=== PATIENT | male | born 1940 | race Caucasian/White ===

== ENCOUNTER 2017-03-01 18:18 | Emergency (ER) | payer MEDICARE, OTHER ==
[~2017-03-01] VITALS: Ht 170.2 cm; Wt 114.9 kg
[~2017-03-01 18:18] MED LIST: ASPI-730 PO; ATOR20TA18 PO; BENA40TA35 PO; FAMO20TA79 PO; METO50TA78 PO; MVI PO
--- OUTSIDE RECORDS SUMMARY | 2017-03-01 18:22 | XMS REPORT | Continuity of Care Document ---
Author Author [facility] Organization [facility] Address Unknown Phone Unavailable Allergies Active Description Code Type Severity Reaction Onset Reported/Identified Relationship to Patient Clinical Status Yes No Known Allergies [id number] Unknown N/A 03/30/2012 Medications Medication Packaging Start Date Stop Date Route Dosage Sig DOCUSATE SODIUM 01/06/2017 01/06/2017 BIDPRN ACETAMINOPHEN 01/06/2017 01/06/2017 Q4HPRN ACETAMINOPHEN 01/06/2017 01/06/2017 Q4HPRN ALUM-MAG HYDROXIDE-SIMETH 01/06/2017 01/06/2017 Q4HPRN MAGNESIUM HYDROXIDE 01/06/2017 01/06/2017 HSPRN CEFAZOLIN 01/06/2017 01/06/2017 ONCEPRN CEFAZOLIN 01/06/2017 01/06/2017 ONCEPRN FAMOTIDINE 01/06/2017 01/06/2017 QD SOTALOL 01/06/2017 01/06/2017 BID BENAZEPRIL 01/06/2017 01/06/2017 QD MULTIVITAMIN 01/06/2017 01/06/2017 QD HYDROCODONE-ACET 5-325MG 01/06/2017 01/06/2017 Q3HPRN ZOLPIDEM 01/06/2017 01/06/2017 HSPRNRX1 ACETAMINOPHEN 01/06/2017 01/06/2017 Q4HPRN ASPIRIN 01/06/2017 01/06/2017 HS ATORVASTATIN 01/06/2017 01/06/2017 HS Problems Date Dx Coded Attending Type Code Diagnosis Diagnosed By 01/08/2017 CHRISTY BANKS E66.9 OBESITY, UNSPECIFIED CHRISTY BANKS 01/08/2017 CHRISTY BANKS E78.5 HYPERLIPIDEMIA, UNSPECIFIED CHRISTY BANKS 01/08/2017 CHRISTY BANKS F17.210 NICOTINE DEPENDENCE, CIGARETTES, UNCOMPLICATED BANKSCHRISTY CAT 01/08/2017 CHRISTY BANKS G47.33 OBSTRUCTIVE SLEEP APNEA (ADULT) (PEDIATRIC) CHRISTY BANKS 01/08/2017 BANKS, CHRISTY S I10 ESSENTIAL (PRIMARY) HYPERTENSION [facility], [facility] 01/08/2017 BANKSCHRISTY S I25.10 ATHEROSCLEROTIC HEART DISEASE OF [place] CORONARY ARTERY WITHOUT ANGINA PECTORIS [facility], [facility] 01/08/2017 BANKSCHRISTY CAT S I25.2 OLD MYOCARDIAL INFARCTION [facility], [facility] 01/08/2017 BANKSCHRISTY S I47.2 VENTRICULAR TACHYCARDIA [facility], [facility] 01/08/2017 BANKSCHRISTY P Z45.02 ENCOUNTER FOR ADJUSTMENT AND MANAGEMENT OF AUTOMATIC IMPLANTABLE CARDIAC DEFIBRILLATOR [facility], [facility] 01/08/2017 BANKSCHRISTY CAT S Z68.41 BODY MASS INDEX (BMI) 40.0-44.9, ADULT BANKS, [facility] 01/08/2017 BANKSCHRISTY CAT S Z79.82 PRISON (CURRENT) USE OF ASPIRIN [facility], [facility] 01/08/2017 CHRISTY BANKS S 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 [facility], [facility] 01/08/2017 BANKSCHRISTY CAT S Z95.1 PRESENCE OF AORTOCORONARY BYPASS GRAFT [facility] CHRISTY Procedures Results Test Result Range CBC with Auto Diff - 01/06/17 08:25 WBC - WHITE CELL COUNT 8.8 X10(3) 4.5-11.0 RBC - RED CELL COUNT 4.87 X10(6) 4.60-6.20 PLATELET COUNT 188 X10(3) 150-450 HEMOGLOBIN 16.1 g/dl 13.5-18.0 HEMATOCRIT 45.1 % 40.0-54.0 MCV 92.6 fL 80.0-96.0 MCH 33 pg 27-31 MCHC 35.7 % 32.0-36.0 LYMPHS 33.1 % 20.0-45.0 MONOS 12.2 % 0.0-15.0 NEUTROPHILS 54.7 % 40.0-80.0 BMP - BASIC METABOLIC PANEL - 01/06/17 08:25 GLUCOSE 129 mg/dl 74-106 BUN 23 mg/dl 7-18 CREATININE 1.36 mg/dl 0.70-1.30 eGFR 51 mL/min SODIUM (NA) 136 mEq/L 136-146 POTASSIUM, BLOOD 4.2 mEq/L 3.5-5.1 CHLORIDE 104 mEq/L 98-107 CO2 (BICARBONATE) 27 mEq/L 21-32 CALCIUM 9.4 mg/dl 8.5-10.1 HOLD SPECIMEN FOR BLOOD BANK - 01/06/17 08:25 HOLD SPECIMEN FOR BLOOD BANK ARC Encounters ACCT No. Visit Date/Time Discharge Status Pt. Type Provider Facility Loc./Unit Complaint [id number] 01/06/2017 07:53:00 01/06/2017 14: 25:00 DIS Outpatient DARREN CHRISTY [facility] 120 Z95.810
[2017-03-01 18:26] VITALS: TEMP 98.7; Ht 170.2 cm; Wt 114.9 kg
--- OUTSIDE RECORDS SUMMARY | 2017-03-01 18:44 | XMS REPORT | Continuity of Care Document ---
Author Author [facility] Organization [facility] Address Unknown Phone Unavailable Allergies Active Description Code Type Severity Reaction Onset Reported/Identified Relationship to Patient Clinical Status Yes No Known Allergies [id number] Unknown N/A 03/30/2012 Medications Medication Packaging Start [...] BANKS, CHRISTY S I10 ESSENTIAL (PRIMARY) HYPERTENSION [facility], [facility] 01/08/2017 BANKSCHRISTY S I25.10 ATHEROSCLEROTIC HEART DISEASE OF [place] CORONARY ARTERY WITHOUT ANGINA PECTORIS [facility], [facility] 01/08/2017 BANKSCHRISTY CAT S I25.2 OLD MYOCARDIAL INFARCTION [facility], [facility] 01/08/2017 BANKSCHRISTY S I47.2 VENTRICULAR TACHYCARDIA [facility], [facility] 01/08/2017 BANKSCHRISTY P Z45.02 ENCOUNTER FOR ADJUSTMENT AND MANAGEMENT OF AUTOMATIC IMPLANTABLE CARDIAC DEFIBRILLATOR [facility], [facility] 01/08/2017 BANKSCHRISTY CAT S Z68.41 BODY MASS INDEX (BMI) 40.0-44.9, ADULT BANKS, [facility] 01/08/2017 BANKSCHRISTY CAT S Z79.82 GROUP HOME (CURRENT) USE OF ASPIRIN [facility], [facility] 01/08/2017 CHRISTY BANKS S 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 Type Provider Facility Loc./Unit Complaint [id number] 01/06/2017 07:53:00 01/06/2017 14: 25:00 DIS Outpatient DARREN CHRISTY [facility] 120 Z95.810
[2017-03-01] MEDS ORDERED: CHLO25TA2 PO (19:02)
[2017-03-01] MEDS ORDERED: SOTA80TA PO (19:02)
[2017-03-01] MEDS ORDERED: MULT-933 PO (19:02)
[2017-03-01 19:19] LABS: BASOPHILS # (AUTO) 0.1 T/MM3 (0-0.2); BASOPHILS % (AUTO) 0.5 % (0-2); EOSINOPHILS # (AUTO) 0.2 T/MM3 (0-0.5); EOSINOPHILS % (AUTO) 2.5 % (0-4); HCT - HEMATOCRIT 43.9 % (41-53); HGB - HEMOGLOBIN 15.3 GM/DL (13.5-17.5); IMMATURE GRANULOCYTE # (AUTO) 0.03 T/MM3 (0.00-0.03); IMMATURE GRANULOCYTE % (AUTO) 0.3 % (0.0-0.5); LYMPHOCYTES # (AUTO) 2.4 T/MM3 (1-4.8); LYMPHOCYTES % (AUTO) 24.5 % (23-45); MEAN CORPUSCULAR HGB 32.4 UUG (26-34); MEAN CORPUSCULAR HGB CONC(MCHC 34.9 GM/DL (31-37); MEAN PLATELET VOLUME 10.3 UM3 (9.4-12.4); MONOCYTES # (AUTO) 0.9 T/MM3 (0-0.8); MONOCYTES % (AUTO) 9.4 % (0-9.0); NEUTROPHILS #(AUTO)-ABSOLUTE 6.1 T/MM3 (1.8-7.7); NEUTROPHILS % (AUTO) 62.8 % (33-66); RED BLOOD COUNT 4.72 M/MM3 (4.50-5.90); WBC - WHITE BLOOD COUNT 9.7 T/MM3 (4.5-11.0)
[2017-03-01 19:23] LABS: ALBUMIN 4.2 G/DL (3.5-5.0); ALBUMIN/GLOBULIN RATIO 1.5 RATIO (1.1-2.2); ALKALINE PHOSPHATASE 90 U/L (38-126); ALT (SGPT) 42 U/L (21-72); ANION GAP 10 MEQ/L (5-15); AST (SGOT) 23 U/L (17-59); BUN/CREATININE RATIO 22 RATIO (6-26); CALCIUM 10.4 MG/DL (8.4-10.2); CHLORIDE 105 MEQ/L (98-107); CO2 - CARBON DIOXIDE 25 MEQ/L (22-30); CREATININE 1.3 MG/DL (0.8-1.5); GLOMERULAR FILTRATION RATE 53; GLUCOSE 254 MG/DL (75-110); SODIUM 140 MEQ/L (134-144)
--- NOTE | 2017-03-01 19:23 | ERPDOC ---
Departure Disposition Decision Date: Mar 01, 2017 Disposition Decision Time: 20:36 (KRISASHOK Givens APRN) Disposition: 01 DISCHARGED HOME, SELF-CARE Impression Impression (MARYJESSEEASHOK Givens APRN) Impression: Primary Impression: Left ureteral calculus Additional Impression: Sigmoid diverticulitis Severity: Moderate (ASHOK PONCE APRN) Condition: Stable Seen By: Mid-level only (ASHOK PONCE APRN) Referrals: GABE ROMERO II, MD (Family) Patient Instructions: Diverticulitis (ED), Kidney Stones (ED) Problems/Meds/Labs Reviewed?: Yes Medications reviewed and manag: Yes (ASHOK PONCE APRN) Additional Instructions: Take the Cipro and the Flagyl as prescribed. I do want you to use the [place] as needed for pain and the Zofran as needed for nausea. If you should have any worsening abdominal pain or vomiting or fever then please return to ER for reevaluation. I do want you to follow up with Dr Romero in the next 1-2 days for reevaluation in his office as well. Follow up care ordered?: Yes Mental Status: Alert, Oriented (ASHOK PONCE APRN) Scripts Ondansetron (Zofran Odt) 4 Mg Tab.rapdis 4 MG PO Q8HR, #7 TAB 0 Refills Orally disintegrating tablet Prov: ASHOK PONCE APRN 03/01/17 Hydrocodone/Acetaminophen ([place] 5-325 Tablet) 5-325 Tablet 1 TAB PO Q6H Y for PAIN, #12 TAB 0 Refills Prov: ASHOK PONCE APRN 03/01/17 Metronidazole (Flagyl) 500 Mg Tablet 500 MG PO Q12HR, #20 TAB 0 Refills Take 1 tablet, by mouth, every 12 hours. Prov: ASHOK PONCE APRN 03/01/17 Ciprofloxacin HCl (Cipro) 500 Mg Tablet 500 MG PO Q12HR, #20 TAB 0 Refills Prov: ASHOK PONCE APRN 03/01/17 HPI - Abdominal Pain General Chief Complaint: Abdominal Pain Stated Complaint: BACK AND ABD PAIN Time Seen by Provider: 18:36 Source: patient History/Exam Limitations: no limitations (ASHOK PONCE APRN) HPI - Abdominal Pain Initial Comments He had onset of left lower abdominal pain today around 1600. Has moved around more to the left lower back since then. Has had some nausea/vomiting and vomited once since arriving in ER. Has had chills but no fever. Denies any diarrhea or constipation. He has had pain like this once in the past when he had a "bladder stone". Denies any urinary symptoms at all. Occurred At: home Onset: Gradual Duration: 12-24 hrs Quality: sharpness Location: LLQ Radiation: no radiation Associated Symptoms: back pain (left lower back pain), fever/chills (chills), nausea/vomiting, DENIES: chest pain, diaphoresis, fatigue, headache, heartburn, rash, shortness of breath, swelling/mass in abdomen, syncope, weakness Hx of Similar Symptoms: Yes (when she had a "bladder stone" in the past) (NOJESSEE,ASHOK N BRICK TENDER) Allergies: Coded Allergies: No Known Allergies (Unverified , 03/30/12) Past History Past Medical History Metabolic: hypercholesterolemia, hypertension Cardiac: CAD, PR Respiratory: COPD, pulmonary embolus (NOLD,ASHOK N BRICK TENDER) Surgical History Cardiac: cardiac bypass, cardiac stent, implantable defib, pacemaker (NOJESSEE, ASHOK N BRICK TENDER) Family History Family History: Negative (NOJESSEE,ASHOK N BRICK TENDER) Vaccines Hx Influenza Vaccination: Yes (FALL 2011) Hx Pneumococcal Vaccination: Yes (fall 2009) (NOJESSEE,ASHOK N BRICK TENDER) Social History Smoking Status: Never smoker Substance Use Type: does not use Alcohol Intake: none (NOLD,ASHOK N BRICK TENDER) Review of Systems Constitutional Constitutional: appetite decrease, chills, DENIES: dizziness, fatigue, fever, weakness (NOLD,ASHOK N BRICK TENDER) Cardiovascular Cardiac: DENIES: chest pain, orthopnea Rhythm/Rate: DENIES: irregular beat, palpitations Vascular: DENIES: pedal edema, unilateral swelling (NOLD,ASHOK N BRICK TENDER) Pulmonary Respiratory: DENIES: cough, dyspnea, sputum, tachypnea (NOLD,ASHOK N BRICK TENDER) GI Upper Abdomen: nausea, vomiting, DENIES: pain Lower Abdomen: pain (LLQ), DENIES: constipation, diarrhea (NOLD,ASHOK N BRICK TENDER) General: DENIES: dysuria, frequency, urgency (NOLD,ASHOK N BRICK TENDER) Integumentary Skin: DENIES: rash (NOLD,ASOHK N BRICK TENDER) Neurological General: DENIES: headache, numbness, tingling, weakness (NOLD,ASHOK N BRICK TENDER) Physical Exam General General Nourishment: well nourished, well developed, appears stated age, no acute distress, adult General Body Habitus: well groomed (NOJESSEE,ASHOK N BRICK TENDER) Vitals and Pain First Documented Vital Signs Date Time Temp Pulse Resp B/P Pulse Ox O2 Delivery O2 Flow Rate FiO2 03/01/17 18:26 98.7 74 16 145/69 94 Room Air (MARK LUCIO MD) Vitals and Pain Weight: Kilograms: 114.900 Height (feet): 5 Height (inches): 7.00 Triage Pain Scale: (NOJESSEE,ASHOK N BRICK TENDER) RN VS reviewed by Provider: Yes (NOGAUDENCIO HOOKSA N BRICK TENDER) Normal Exams: Neck: Full range of motion, without adenopathy, JVD, bruits or thyromegaly Chest/Resp: Clear all marquez, with good airflow, and symmetry bilaterally CV: Regular rate and rhythm, without murmur or gallop, Pulses 2+ all extremities, capillary refill, <2 seconds all ext., no pedal edema noted Abdomen: Bowel sounds positive, non-distended, no hepatosplenomegaly, masses or bruits noted Lymphatic: No lymphadenopathy, or lymphedema noted Integumentary: No rashes, hives, or bruising noted Neurologic: Patient is alert, and oriented Psychiatric: Patient exhibits, appropriate attention, emotion and affect (NOLD,ASHOK N BRICK TENDER) Abdomen Inspection: NOT FOUND: distention Palpation: FOUND: tender (TTP in the LLQ), voluntary guarding, NOT FOUND: involuntary guarding, soft Auscultation: NOT FOUND: normoactive (NOLD,ASHOK N BRICK TENDER) Differential Diagnoses Considering: Appendicitis, Biliary Colic, Bowel Obstruction, Cholecystitis, Constipation, Diverticulitis, UTI (NOLD,ASHOK N BRICK TENDER) Progress Results/Orders Orders Procedure Category Date Status Time Ct Renal W/O Contrast CT 03/01/17 Resulted UA, LAB 03/01/17 Complete Dip&Micro(Complete) & 20:06 Ketorolac (Toradol) PHA 03/01/17 Complete 20:15 Morphine Sulfate PHA 03/01/17 Complete (Morphine) 20:15 Ondansetron Inj PHA 03/01/17 Complete (Zofran) 20:45 Ondansetron Odt PHA 03/01/17 Complete (Prepack) (Zofran Odt 20:45 Hydrocodone/Apap PHA 03/01/17 Complete 5/325 Prepack ([place] 5 20:45 Ciprofloxacin (Cipro) PHA 03/01/17 Complete 20:45 Metronidazole (Flagyl) PHA 03/01/17 Complete 20:45 (MARK LUCIO MD) Lab Results Laboratory Tests Test 03/01/17 19:09 03/01/17 20:06 White Blood Count 9.7T/MM3 Red Blood Count 4.72M/MM3 Hemoglobin 15.3GM/DL Hematocrit 43.9% Mean Corpuscular Volume 93.0UM3 Mean Corpuscular Hemoglobin 32.4UUG Mean Corpuscular Hemoglobin Concent 34.9GM/DL RDW Standard Deviation 43.3FL Platelet Count 186T/MM3 Mean Platelet Volume 10.3UM3 Immature Granulocyte % (Auto) 0.3% Neutrophils (%) (Auto) 62.8% Lymphocytes (%) (Auto) 24.5% Monocytes (%) (Auto) 9.4% Eosinophils (%) (Auto) 2.5% Basophils (%) (Auto) 0.5% Absolute Immature Granulocyte (auto 0.03T/MM3 Absolute Neutrophils (auto) 6.1T/MM3 Absolute Lymphocytes (auto) 2.4T/MM3 Absolute Monocytes (auto) 0.9T/MM3 Absolute Eosinophils (auto) 0.2T/MM3 Absolute Basophils (auto) 0.1T/MM3 Turbidity < 20 Sodium Level 140MEQ/L Potassium Level 4.0MEQ/L Chloride Level 105MEQ/L Carbon Dioxide Level 25MEQ/L Anion Gap 10MEQ/L Blood Urea Nitrogen 28.0MG/DL Creatinine 1.3MG/DL Glomerular Filtration Rate Calc 53 BUN/Creatinine Ratio 22RATIO Glucose Level 254MG/DL Calculated Osmolality 284MOSM/KG Calcium Level 10.4MG/DL Total Bilirubin 1.00MG/DL Icterus Index < 2 Aspartate Amino Transf (AST/SGOT) 23U/L Alanine Aminotransferase (ALT/SGPT) 42U/L Alkaline Phosphatase 90U/L Total Protein 7.0G/DL Albumin 4.2G/DL Globulin 2.8G/DL Albumin/Globulin Ratio 1.5RATIO Chemistry Specimen Hemolysis < 15 Urine Collection Type Cleancatch-midstream Urine Color Yellow Urine Turbidity Clear Urine pH 5.0 Urine Specific Disputanta 1.025 Urine Protein Negative Urine Glucose (UA) 2+ Urine Ketones Negative Urine Blood 3+ Urine Nitrite Negative Urine Bilirubin Negative Urine Urobilinogen 0.2EU/DL Urine Leukocyte Esterase Negative Urine RBC 10-20/HPF Urine WBC 0-1/HPF Urine Squamous Epithelial Cells 0-5 Urine Bacteria Trace Urine Culture Indicated Cult not indicated (MARK LUCIO MD) Medications Current ED Medications Ketorolac Tromethamine (Toradol) 15 mg O ONCE IV Last administered on 20:32; Start 03/01/17 at 20:15; Stop 03/01/17 at 20:17; Status DC Morphine Sulfate (Morphine) 2 mg O ONCE IV Last administered on 03/01/17 20:33 ; Start 03/01/17 at 20:15; Stop 03/01/17 at 20:17; Status DC Ondansetron HCl (Zofran) 4 mg O ONCE IV Last administered on 03/01/17 20:42; Start 03/01/17 at 20:45; Stop 03/01/17 at 21:21; Status DC Ondansetron HCl (ZOFRAN ODT (PrePack)) 1 pack O ONCE SENT HOME Last administered on 03/01/17 21:05; Start 03/01/17 at 20:45; Stop 03/01/17 at 20:46; Status DC Acetaminophen/ Hydrocodone Bitart (NORCO 5 (PrePack)) 1 pack O ONCE SENT HOME Last administered on 03/01/17 21:05; Start 03/01/17 at 20:45; Stop 03/01/17 at 20: 46; Status DC Ciprofloxacin (Cipro) 500 mg O ONCE PO Last administered on 03/01/17 21:05; Start 03/01/17 at 20:45; Stop 03/01/17 at 20:46; Status DC Metronidazole (Flagyl) 500 mg O ONCE PO Last administered on 4/4/17at 21:05; Start 03/01/17 at 20:45; Stop 03/01/17 at 20:46; Status DC (MARK LUCIO MD) Progress Progress WBC is normal at 9.7 with 62.8 neutrophils. CMP is normal. UA does show 3+ blood. CT scan does show a 6.6mm stone that has passed into the bladder with mild left hydroureter. Does also show acute diverticulitis with possible walled off perforation without abscess formation. Did discuss findings with Dr Lozada. Will go ahead and let him go home with Rx for Cipro and Flagyl today. Strict return precautions are given regarding the possible perforation- severe abdominal pain, vomiting, fever. Does verbalize understanding of instructions. [place] for pain and Zofran for nausea. (ASHOK PONCE APRN) Progress Called the next morning after this patient was seen by pharmacy who says that the Cipro prescribed interacts with his Sotolol. Rx called for Bactrim DS BID x 10 days instead. (MARK LUCIO MD) CT CT : Reason for Exam: LLQ abdominal pain CT: Abd/Pelvis IV contrast Interpretation: Abnormal (acute sigmoid diverticulitis with possible walled off perforation but no drainable abscess, mild left hydroureter with a 6.6mm calculus passed in the midline dependent urinary bladder) (ASHOK PONCE APRN) ASHOK PONCE APRN Mar 01, 2017 19:22 MARK LUCIO MD Mar 02, 2017 18:[address] : Reason for Exam: LLQ abdominal pain CT: Abd/Pelvis IV contrast Interpretation: Abnormal (acute sigmoid diverticulitis with possible walled off perforation but no drainable abscess, mild left hydroureter with a 6.6mm calculus passed in the midline dependent urinary bladder) (ASHOK PONCE APRN) ASHOK PONCE APRN Mar 01, 2017 19:22 MARK LUCIO MD Mar 02, 2017 18:42
[2017-03-01 20:14] LABS: BLOOD, URINE 3+ (NEGATIVE); COLOR,URINE YELLOW (YELLOW); LEUKOCYTE ESTERASE ,URINE NEGATIVE (NEGATIVE); NITRITE,URINE NEGATIVE (NEGATIVE); UROBILINOGEN,URINE 0.2 EU/DL (NORMAL)
[2017-03-01] MEDS ORDERED: MORPHINE SULFATE 2 MG SYRINGE IV ONE (20:15)
[2017-03-01] MEDS ORDERED: KETOROLAC 30mg/ml INJECTION IV ONE (20:15)
[2017-03-01] MEDS ORDERED: HYDR-4246 PO (20:39)
[2017-03-01] MEDS ORDERED: ONDA4TAB7 PO (20:39)
[2017-03-01] MEDS ORDERED: CIPR-212 PO (20:39)
[2017-03-01] MEDS ORDERED: METR500T PO (20:39)
[2017-03-01] MEDS ORDERED: METRONIDAZOLE 500 MG TABLET PO ONE (20:45)
[2017-03-01] MEDS ORDERED: HYDROCODONE/APAP 5/325 (PrePack) SENT HOME ONE (20:45)
[2017-03-01] MEDS ORDERED: ONDANSETRON ODT 4mg #3 (PrePack) SENT HOME ONE (20:45)
[2017-03-01] MEDS ORDERED: ONDANSETRON 4mg/2ml INJECTION IV ONE (20:45)
[2017-03-01] MEDS ORDERED: CIPROFLOXACIN 500 MG TABLET PO ONE (20:45)
[2017-03-01 20:50] LABS: BACTERIA,URINE TRACE (NEGATIVE); SQUAMOUS EPITHELIAL CELL,UR 0-5; WBC,URINE 0-1 /HPF (0-5)
[2017-03-01 21:13] VITALS: BP 115/61; PULSE 82; RESP 16; O2SAT 93
--- NOTE | 2017-03-02 08:24 | DI ---
Indication: ITS.REASON: left flank pain PROCEDURE: CT RENAL W/O CONTRAST: Encounter: Initial Comparison: Renal CT dated July 20, 2016 Technique: Axial CT images were performed through the abdomen and pelvis without intravenous contrast. Coronal and sagittal two-dimensional reformats. Automated Exposure Control and Iterative Reconstruction dose reducing techniques were utilized. Findings: Stable 6 mm noncalcified pulmonary nodule in the right lower lobe. The unenhanced contours of the liver show fatty infiltration along the fissure for the falciform ligament and anterior left lobe. The gallbladder is unremarkable. The spleen, pancreas and adrenal glands are within normal limits. Left renal cyst. No renal stone disease. No ureteral stones. Scattered atherosclerotic plaque in the abdominal aorta with a small aneurysm of the infrarenal abdominal aorta. This measures up to 4.3 cm in diameter, larger than the prior measurements of 3.7 cm. 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 Bladder shows small stone fragments that could represent recently passed stones. No free fluid. There is inflammation surrounding the proximal to mid sigmoid colon in a region of diverticular disease with two prominent exophytic diverticula. A contained microperforation cannot be entirely excluded. No evidence of bowel obstruction. The appendix is normal. Bone windows show a stable sclerotic focus in the left iliac bone posteriorly. Impression: 1. Acute sigmoid diverticulitis with a possible contained microperforation. 2. Interval enlargement of a 4.3 cm infrarenal abdominal aortic and 2 cm right common iliac artery aneurysms. Recommend vascular surgical evaluation. 3. Evidence of recently passed stones, now in the bladder. There is a preliminary report by [email or web address]. .
== END 2017-03-01 21:21 | disposition home or self-care (01) ==
LOC: ED 18:18
DX: N20.1 Calculus of ureter (principal); N13.4 Hydroureter; K57.32 Diverticulitis of large intestine without perforation or abscess without bleeding
CPT/HCPCS: 74176; 80053; 81001; 85025; 96374; 96375; 99284; A9270; J1885; J2405